=== PATIENT | male | born 1960 | race Caucasian/White ===

== ENCOUNTER 2019-10-22 12:43 | Inpatient (IN) | payer MEDICAID, OTHER ==
[~2019-10-22] VITALS: Ht 177.8 cm; Wt 104.7 kg
[2019-10-22 13:25] LABS: Basophils # (auto) 0 10 ^3/uL (0-0.2); Basophils % (auto) 0.6 % (0.0-2.0); Eosinophils # (auto) 0 10 ^3/uL (0-0.8); Eosinophils % (auto) 0.3 % (0.0-7.0); Hemoglobin 12.9 g/dL (13.5-17.5); Lymphocytes # (auto) 0.7 10 ^3/uL (0.4-5.4); Lymphocytes % (auto) 10.4 % (10.0-50.0); Mean Corpuscular Hemoglobin 30.8 pg (28.0-32.0); Mean Corpuscular Hgb Conc. 33.1 g/dL (32.0-36.0); Mean Corpuscular Volume 93.2 fL (80.0-100.0); Monocytes # (auto) 0.7 10 ^3/uL (0-1.3); Neutrophils # (auto) 4.9 10 ^3/uL (1.6-8.6); Neutrophils % (auto) 77.7 % (37.0-80.0); Platelet Count (auto) 161 10^3/uL (140-450); Red Blood Cells 4.19 10^6/uL (4.5-5.90); White Blood Cell 6.3 10^3/uL (4.4-10.8)
[2019-10-22 13:40] LABS: INR 1.21 (0.9-1.15); Partial Thromboplastin Time 34.1 sec (23.64-32.05)
[2019-10-22] MEDS ORDERED: HYDROcodone-ACET 10/325MG TAB PO ONE (13:45)
[2019-10-22 13:53] LABS: Albumin 3.1 g/dL (3.4-5.0); BUN/Creatinine Ratio 18.2; Calcium 8.1 mg/dL (8.5-10.1); Potassium 4.6 mmol/L (3.5-5.1)
[2019-10-22 13:58] LABS: Bilirubin, Total 0.7 mg/dL (0.2-1.0); Total Protein 6.5 g/dL (6.4-8.2)
[2019-10-22] MEDS ORDERED: MORPHINE SULF INJ 2 MG/ML SYRINGE 1ML IV ONE (15:15)
[2019-10-22] MEDS ORDERED: ONDANSETRON HCL 4 MG/2 ML VIAL IV ONE (15:15)
[2019-10-22] MEDS ORDERED: MORPHINE SULF INJ 2 MG/ML SYRINGE 1ML IV PRN ×2 (15:45)
[2019-10-22] MEDS ORDERED: ACETAMINOPHEN 500 MG TAB PO PRN (15:45)
[2019-10-22] MEDS ORDERED: PROMETHAZINE HCL 25 MG/ML 1ML IV PRN (15:45)
[2019-10-22] MEDS ORDERED: ALBUTEROL SULF 2.5 MG/0.5ML(0.5%) NEB SOLN NEB PRN (15:45)
[2019-10-22] MEDS ORDERED: HYDROcodone-ACET 5/325MG TAB PO PRN (15:45)
[2019-10-22] MEDS ORDERED: LORazepam 0.5 MG TAB PO PRN (15:45)
[2019-10-22] MEDS ORDERED: NITROGLYCERIN 0.4 MG SL TAB SL PRN (15:45)
[2019-10-22] MEDS: METOPROLOL TARTRATE 25 MG TAB PO SCH ×2 (16:30→21:54)
--- NOTE | 2019-10-22 17:00 | NUR ---
Telemetry admit from ER KALLIE YUAN admitted to Telemetry unit. Patient oriented to Carmen Gomez, primary RN, unit, room, bed, and unit policies regarding patient care and visiting hours. Patient now on continuous telemetry monitoring, tele box #55 and telemetry reading on arrival to unit is sinus rhythm 90's. Patient placed on bedside oxygen at 4l n/c. Patient weighed by bedscale and encouraged to call if they need something. All questions and concerns addressed, patient verbalized understanding. Will cont care
--- NOTE | 2019-10-22 17:08 | NUR ---
WOUND CARE NOTE: Wound care in to see patient per wound care request regarding "Rt gluteal" skin issue that are noted present on admission. Patient is 58 years old male with admitting diagnosis of Heart Failure, Rt Hip Pain. Patient with history of A Fib,CHF, COPD, CAD, htn, Hyperlipidemia. Patient is resting in bed in Rm. 290B. Patient is awake,alert and oriented. Patient is in no stated pain at this time, however complaints of R hip pain upon turning. Patient is able to assist in turning and repositioning. His Yvan score is 19. Patient noted with blanchable erythema to his Rt hip and bilateral knee. 1.5x1.5cm superficial scratch noted to his Rt. gluteal area,clean and dry, left open to air. Patient reported that "my skin gets dry and it itches, I scratch it". He added that his knees and Rt hip turned red and painful, two days ago and he normally ambulatory but this morning he can not walk due to Rt hip pain. Photograph of mentioned skin issue are taken for reference. Patient tolerated well, no other wound noted. Repositioned patient for comfort facing his Left side. Bed in low position, call knight on hand, all safety precautions in placed. No further wound care monitoring needed at this time. RECOMMENDATION: Nursing to continue with BID/PRN cleaning and application of Z Guard cream to sacral, buttocks as preventative per MD order, redistribute pressure points with pillows,reconsult for active wound, pressure injury, low Yvan score of 12 and below Addendum: 10/22/19 at 1757 by Martha Ordaz RN Amended: Links added.
[2019-10-22 17:15] VITALS: BP 142/99
--- NOTE | 2019-10-22 19:00 | NUR ---
Patient care endorsed to Ruben andersen patient laying in semi fowlers position in bed on 3L n/c. Patient seems drowsy with periods of been fully awake. Patient is arousable, responds to name and follows commands. Fall precautions in place since admission to unit. Patient refuses bed alarm on as he states he will call for assistance as needed. Fall band on and non slip socks are on. No acute distress or sob noted at this time. Patient instructed to notify primary rn for assistance he verbalized understanding.
[2019-10-22] MEDS: IPRATROPIUM BROM 0.5 MG/2.5ML INH SOL NEB SCH (19:06)
[2019-10-22] MEDS: ALBUTEROL SULF 2.5 MG/0.5ML(0.5%) NEB SOLN NEB SCH (19:06)
--- NOTE | 2019-10-22 20:25 | NUR ---
Initial Assessment and Abnormal Condition Upon initial assessment found the patient to be in something of a stupor. He seemed very drowsy and spoke incoherently. During report one of the Nursing Aides reported this and the previous nurse stated that was new as he did not appear that way throughout the shift. The patient was sitting on the edge of the bed and appeared he may fall soon so I insisted he lay down. The patient complied but needed maximum assistance. The patient id due to provide a urine sample which I reminded him of. I am questioning if he may have taken something from home. Will continue to monitor.
[2019-10-22 20:27] VITALS: BP 142/99
[2019-10-22] MEDS: APIXABAN 5 MG TAB PO SCH (21:53)
[2019-10-22] MEDS: FAMOTIDINE 20 MG TAB PO SCH (21:54)
[2019-10-22] MEDS: SODIUM CHLOR 0.9% PF (SALINE LOCK) 10ML VIAL/SYR IV SCH (21:54)
[2019-10-22 22:00] VITALS: BP 150/113
--- NOTE | 2019-10-22 23:08 | NUR ---
Elevated BP The patient has been sleeping most of the shift. He still has not yielded a urine sample and is now perspiring a lot. Upon re-assessment of his BP I saw the BP was still high at 160/118. A recheck yielded similar results, 157/124. The patient is stable, sleeping, no complaints. Will notify the Hospitalist for a PRN medication for his BP.
[2019-10-23] MEDS: IPRATROPIUM BROM 0.5 MG/2.5ML INH SOL NEB SCH ×4 (00:21→19:00)
[2019-10-23] MEDS: ALBUTEROL SULF 2.5 MG/0.5ML(0.5%) NEB SOLN NEB SCH ×4 (00:21→19:00)
[2019-10-23] MEDS ORDERED: LABETALOL HCL 5 MG/ML 4ML SYRINGE IV ONE ×2 (00:30→01:37)
[2019-10-23] MEDS ORDERED: LABETALOL HCL 5 MG/ML ML 20ML VIAL IV ONE (01:39)
--- NOTE | 2019-10-23 01:56 | NUR ---
Labetalol Bulleted Called the ICU about sending up Labetalol via the tube system to fulfill the new order for the patient. There was some difficulty getting the medication and the end result was 2 extra notation of the medication on the eMAR as the medication was overridden 3 times. The patient received the ordered dose, 10mg IV once. The other two instances on the eMAR were marked as already given. Will continue to monitor.
[2019-10-23 05:30] VITALS: BP 127/104
[2019-10-23] MEDS: SODIUM CHLOR 0.9% PF (SALINE LOCK) 10ML VIAL/SYR IV SCH ×3 (06:00→22:00)
[2019-10-23 06:43] LABS: Albumin 3.4 g/dL (3.4-5.0); Calcium 8.6 mg/dL (8.5-10.1); Potassium 5.5 mmol/L (3.5-5.1)
[2019-10-23 06:46] LABS: BUN/Creatinine Ratio 20.2; Bilirubin, Total 1.1 mg/dL (0.2-1.0); Total Protein 7.2 g/dL (6.4-8.2)
[2019-10-23 08:43] LABS: Urine Bacteria FEW /hpf (None Seen); Urine Blood Negative /uL (Negative); Urine Hyaline Cast FEW /lpf (0 - 2); Urine Mucus FEW (None Seen); Urine Specific Gravity 1.025 (1.001-1.035); Urine WBC 3 /hpf (0 - 3)
[2019-10-23 08:52] LABS: Alcohol, Urine < 3.0 mg/dL (0-5); Amphetamine Screen, Urine POSITIVE (NEGATIVE); Barbiturate Scree,Urine NEGATIVE (NEGATIVE); Benzodiazephine Screen, Urine NEGATIVE (NEGATIVE); Cannabinoid Screen, Urine NEGATIVE (NEGATIVE); Cocaine Screen, Urine NEGATIVE (NEGATIVE); Phencyclidine Screen, Urine NEGATIVE (NEGATIVE)
[2019-10-23 08:59] LABS: Opiate Scree,Urine POSITIVE (NEGATIVE)
[2019-10-23 09:00] VITALS: BP 122/80
[2019-10-23] MEDS ORDERED: POTASSIUM CHL 20 Meq TABLET PO SCH (10:00)
[2019-10-23] MEDS ORDERED: NITROGLYCERIN 0.2MG/HR TOPICAL PATCH TD SCH (10:00)
[2019-10-23] MEDS: FUROSEMIDE 20 MG/2 ML VIAL IV SCH (10:41)
[2019-10-23] MEDS: FAMOTIDINE 20 MG TAB PO SCH ×2 (10:42→23:28)
[2019-10-23] MEDS: APIXABAN 5 MG TAB PO SCH ×2 (10:42→23:27)
[2019-10-23] MEDS: ENALAPRIL MALEATE 10 MG TAB PO SCH (10:43)
[2019-10-23] MEDS: METOPROLOL TARTRATE 25 MG TAB PO SCH ×2 (10:43→23:28)
--- NOTE | 2019-10-23 11:08 | NUR ---
Decrease o2 patient assisted to turn to his side to change chux patient on o2 n/c at 4L. Patient noted increased sob and increased wheezing. Paged R.T to bedside for prn breathing treatment, per Sultana Small. patient already had breathing treatment and will not do one at this time. Patient assisted up right instructed to deep breath oxygen sat noted to have increased to 92-94% patient slowly catching breath and states feeling better and not sob after a while. Will cont to monitor
[2019-10-23 12:48] VITALS: BP 108/83
--- NOTE | 2019-10-23 13:08 | NUR ---
MD at bedside Jose Gunter aware of patient's status including skin integrity. New orders received for cardio consult, ortho, tele psych for amphetamine use. Will carry out orders and cont care. Patient on contact iso for "shingles", per MD continue contact precautions. P.T. paged to bedside. No acute distress or sob noted.
--- NOTE | 2019-10-23 13:41 | NUR ---
Spoke to [employer] Machine Operator Spoke to MD Manzo at nurse's station and aware of pending consult. MD aware of patient's status including pt tele monitor shows sinus rhythm. Awaiting new orders
[2019-10-23] MEDS ORDERED: LORazepam 0.5 MG TAB PO PRN (14:30)
[2019-10-23] MEDS ORDERED: DEXTROSE (50%) 50ML SYRG IV ONE (15:00)
[2019-10-23] MEDS ORDERED: InsuLIN REG 1unit/0.01ml Soln (100units/ml) IV ONE (15:00)
--- NOTE | 2019-10-23 16:15 | NUR ---
Spoke to case packer and sealer Kristal aware of pending ss consult, she states manager social services will see patient tomorrow as there's no order for dc for today.
[2019-10-23 17:00] VITALS: BP 113/57
--- NOTE | 2019-10-23 18:27 | NUR ---
electronics engineering technician at bedside to draw potassium as ordered.
[2019-10-23 18:43] LABS: BUN/Creatinine Ratio 24.3; Calcium 8.8 mg/dL (8.5-10.1); Potassium 4.3 mmol/L (3.5-5.1)
--- NOTE | 2019-10-23 19:02 | NUR ---
Received call from lab reporting critical BS of 40. Patient accucheck performed at this time and is 80. Patient fully awake, denies symptoms of hypoglycemia, denies dizziness, lightheaded. Patient provided with dinner tray at this time and he is eating. No ss of distress or acute sob noted. Patient instructed to report any symptoms of hypoglycemia he verbalized understanding. Fall precs in place. Patient states his "hip hurts but I'm okay right now I would just like to know what is wrong with it if it's not broken and I didn't fall". Patient denies need for pain meds at this time. Endorsed care to Marcy andersen and instructed to notify MD Aponte when lab results back if potassium high as per communication order.
--- NOTE | 2019-10-23 19:28 | NUR ---
Opening Shift Note Assumed care of patient, awake and alert. No S/S of distress/SOB or pain. Patient is on 4L NC and tolerating well. Instructed on POC and to call for assist PRN, will continue to monitor for changes Q1hr and PRN. Call light and bedside table are within reach. Safety precautions maintained bed rails 2x and bed is in lowest position.
--- NOTE | 2019-10-23 21:20 | NUR ---
Tele Psych Done Per psychiatrist, patient needs a painting manager and does not meet criteria for substance addiction. Awaiting psych physician report. Will continue to monitor patient Q1 and PRN. Call light and bedside table are within reach, patient instructed to call for assistance PRN.
[2019-10-23 21:36] VITALS: BP 110/65
[2019-10-24] MEDS: IPRATROPIUM BROM 0.5 MG/2.5ML INH SOL NEB SCH ×4 (00:22→18:26)
[2019-10-24] MEDS: ALBUTEROL SULF 2.5 MG/0.5ML(0.5%) NEB SOLN NEB SCH ×4 (00:22→18:26)
[2019-10-24 05:00] VITALS: BP 111/76
[2019-10-24] MEDS: SODIUM CHLOR 0.9% PF (SALINE LOCK) 10ML VIAL/SYR IV SCH ×2 (05:41→14:28)
[2019-10-24 06:26] LABS: Basophils # (auto) 0.1 10 ^3/uL (0-0.2); Basophils % (auto) 0.7 % (0.0-2.0); Eosinophils # (auto) 0 10 ^3/uL (0-0.8); Eosinophils % (auto) 0.2 % (0.0-7.0); Hematocrit 39.3 % (41.0-53.0); Hemoglobin 13.2 g/dL (13.5-17.5); Lymphocytes % (auto) 15.3 % (10.0-50.0); Mean Corpuscular Hgb Conc. 33.5 g/dL (32.0-36.0); Mean Corpuscular Volume 92.5 fL (80.0-100.0); Monocytes # (auto) 1.2 10 ^3/uL (0-1.3); Monocytes % (auto) 17.5 % (0.0-12.0); Neutrophils # (auto) 4.5 10 ^3/uL (1.6-8.6); Neutrophils % (auto) 66.3 % (37.0-80.0); Platelet Count (auto) 184 10^3/uL (140-450); Red Blood Cells 4.25 10^6/uL (4.5-5.90); Red Cell Distribution Width 15.6 % (11.8-14.3); White Blood Cell 6.8 10^3/uL (4.4-10.8)
[2019-10-24 06:40] LABS: Calcium 8.5 mg/dL (8.5-10.1); Potassium 4.4 mmol/L (3.5-5.1)
[2019-10-24 06:43] LABS: BUN/Creatinine Ratio 28.8
--- NOTE | 2019-10-24 07:25 | NUR ---
OPENING SHIFT NOTES Assumed care of patient from night clerk RN. Patient is alert and oriented x4, no signs of distress noted. Patient verbalized pain level 10/10, pain medication offered and patient refused. will continue to monitor pain levels. Patient was updated on the plan of care and verbalized understanding. Patient receiving oxygen via nasal cannula, at 3L/min saturation 96. Bed is locked, in the lowest position, side rails up x2 and call light is in reach. Patient was encouraged to call for assistance as needed.
[2019-10-24 08:41] VITALS: BP 124/90
[2019-10-24] MEDS: FUROSEMIDE 20 MG/2 ML VIAL IV SCH (09:36)
[2019-10-24] MEDS: APIXABAN 5 MG TAB PO SCH (09:36)
[2019-10-24] MEDS: ENALAPRIL MALEATE 10 MG TAB PO SCH (09:37)
[2019-10-24] MEDS: FAMOTIDINE 20 MG TAB PO SCH (09:37)
[2019-10-24] MEDS: METOPROLOL TARTRATE 25 MG TAB PO SCH (09:37)
--- NOTE | 2019-10-24 09:45 | NUR ---
Weekend system operation superintendent-10/23/19 [id number] I received a page from nurse Art letting me know that there is a social service consult for this patient for home health and resources for substance abuse. Per nurse Art patient is not discharging home today-I let her know that it would be followed up on Thursday.
--- NOTE | 2019-10-24 12:34 | NUR ---
CALL FROM Zeenat SMITH updated on patient status, orders to page Bank[facility] for cardiac clearance for discharge. Will carry out.
--- NOTE | 2019-10-24 13:03 | NUR ---
JOSEFINA PAGED per Jose Aponte orders for cardiac clearance for discharge.
--- NOTE | 2019-10-24 13:22 | NUR ---
CALL FROM PATIENT GIRLFRIEND Conchita, patient's girlfriend, called. After verification of password she was updated on the patient status and the plan of care. She verbalized understanding. All questions answered.
[2019-10-24 13:33] VITALS: BP 113/78
--- NOTE | 2019-10-24 14:14 | NUR ---
JOSEFINA RETURNED PAGE Per MD patient is cleared for DC
--- NOTE | 2019-10-24 14:28 | NUR ---
Pt reports 03/15 pain level to R hip with certain movements. Pt completed x 10 reps of each exercise for ankle pumps, quad sets,hip abd/add to then later xfr from bed to edge of bed. Pt tolerated fair to sit to stand x 5 reps mostly WB on RLE Addendum: 10/24/19 at 1430 by Lauren Gaona PT Amended: Links added.
[2019-10-24] MEDS ORDERED: BECL80AE11 IN (15:06)
[2019-10-24] MEDS ORDERED: ALBUAER3 IN (15:07)
[2019-10-24] MEDS ORDERED: APIX5TAB PO (15:08)
[2019-10-24] MEDS ORDERED: AMIO200T33 PO (15:08)
[2019-10-24] MEDS ORDERED: ALBU0.084 NEB (15:09)
[2019-10-24] MEDS ORDERED: BACL10TA PO (15:09)
[2019-10-24] MEDS ORDERED: HYDR-4833 PO (15:10)
[2019-10-24] MEDS ORDERED: FURO1TAB31 PO (15:13)
[2019-10-24] MEDS ORDERED: MET25T PO (15:13)
[2019-10-24] MEDS ORDERED: ENAL10TA2 PO (15:13)
--- NOTE | 2019-10-24 16:00 | NUR ---
WOUND PICTURES TAKEN FOR DC
[2019-10-24 16:08] VITALS: BP 149/74
--- NOTE | 2019-10-24 16:40 | NUR ---
Assessment Patient is a 58-year-old male who is alert and oriented. Prior to admission patient lived home with his girlfriend and friends. Patient functioned independently and care for his own ADLs. Per patient he will return home to his prior living arrangements post discharge and his girlfriend will transport him home. Patient informed me he has a nebulizer for home use. Patient stated he would like a walker. Informed patient I will inform nurse regarding order for walker. Advised patient there is a Social Service order for home health physical therapy, safety evaluation, resources for drug rehab and referral to [facility] transitional care management. Patient stated he does not need resources for drug rehab. Informed patient clinical information will be faxed to [facility] [facility]. Informed patient he has a right to participate in all discharge planning. Patient verbalized understanding and agreed to discharge plan. Faxed clinical information to [facility] and [facility]. [facility] [phone] patient has been accepted and service to start within 24-48hrs upon d/c day. Per Sushma with [facility] authorization for home health is [id number]. Sushma advised me Winsome with [facility] will referral patient to [facility] transitional care management. Informed KADY Valerio regarding walker and d/c plan. Addendum: 10/24/19 at 1643 by SIMRAN ZAVALETA Amended: Links added.
[2019-10-24 16:45] VITALS: BP 149/95
--- NOTE | 2019-10-24 17:04 | NUR ---
DISCHARGE Discharge instructions given as ordered. Encourage to follow up with PMD as instructed. All questions and concerns addressed. Patient verbalized understanding. Medication reconciliation form completed and copy given to patient. IV removed with catheter intact, pressure dressing applied. Telemetry unit returned to ICU. Patient taken to vehicle via wheelchair with all personal belongings, accompanied by staff. No distress noted at time of departure.
--- NOTE | 2019-10-25 12:16 | NUR ---
consultative sales associate 10/24/2019 Per consult fww. No call or page on this patient. Patient was discharged home without fww being delivered. I sent order for walker to and to Sushma manager case at [facility]. to deliver walker to patients home. Per Sushma auth for walker is [id number]. has been notified. Addendum: 10/25/19 at 1218 by Arina Arguelles Amended: Links added.
== END 2019-10-24 17:04 | disposition home health service (06) | DRG 194 ==
LOC: EDBD 12:43 → ER 12:43 → TELE 12:44 → TELE-WESTW 16:48
PROVIDERS: ADMIT Internal Medicine; ATTEND Internal Medicine
DX: I11.0 Hypertensive heart disease with heart failure (principal); L89.301 Pressure ulcer of unspecified buttock, stage 1; J96.10 Chronic respiratory failure, unspecified whether with hypoxia or hypercapnia; S32.059A Unspecified fracture of fifth lumbar vertebra, initial encounter for closed fracture; E87.5 Hyperkalemia; E87.1 Hypo-osmolality and hyponatremia; J44.1 Chronic obstructive pulmonary disease with (acute) exacerbation; M16.0 Bilateral primary osteoarthritis of hip; I50.43 Acute on chronic combined systolic (congestive) and diastolic (congestive) heart failure; I48.0 Paroxysmal atrial fibrillation; M19.019 Primary osteoarthritis, unspecified shoulder; M43.17 Spondylolisthesis, lumbosacral region; Z99.81 Dependence on supplemental oxygen; I25.10 Atherosclerotic heart disease of native coronary artery without angina pectoris; E78.5 Hyperlipidemia, unspecified; G89.29 Other chronic pain; D64.9 Anemia, unspecified; E11.9 Type 2 diabetes mellitus without complications; Z79.01 Long term (current) use of anticoagulants; Z82.49 Family history of ischemic heart disease and other diseases of the circulatory system; Z87.891 Personal history of nicotine dependence; Z91.11 Patient's noncompliance with dietary regimen; Z91.14 Patient's other noncompliance with medication regimen; Z79.84 Long term (current) use of oral hypoglycemic drugs
CPT/HCPCS: 36415; 36600; 71045; 72192; 73030; 73502; 80048; 80053; 80307; 81001; 82550; 82805; 82962; 83735; 83880; 84443; 84484; 85025; 85610; 85652; 85730; 93306; 93971; 94640; 97110; 97163; 97530; G0378; J1815; J2405; J3490

== ENCOUNTER 2020-12-05 02:23 | Inpatient (IN) | payer MEDICAID ==
[~2020-12-05] VITALS: Ht 182.9 cm; Wt 77.8 kg
[~2020-12-05 02:23] MED LIST: ALBU0.084 NEB; ALBUAER3 IN; AMIO200T33 PO; APIX5TAB PO; BACL10TA PO; BECL80AE11 IN; ENAL10TA13 PO; FURO1TAB31 PO; HYDR-4833 PO; MET25T PO
[2020-12-05 06:07] LABS: Basophils # (auto) 0.1 10 ^3/uL (0-0.2); Basophils % (auto) 0.6 % (0.0-2.0); Eosinophils # (auto) 0 10 ^3/uL (0-0.8); Hematocrit 38.8 % (41.0-53.0); Hemoglobin 13.5 g/dL (13.5-17.5); Lymphocytes % (auto) 11.6 % (10.0-50.0); Mean Corpuscular Hemoglobin 33.9 pg (28.0-32.0); Mean Corpuscular Hgb Conc. 34.9 g/dL (32.0-36.0); Mean Corpuscular Volume 97.1 fL (80.0-100.0); Monocytes # (auto) 0.8 10 ^3/uL (0-1.3); Monocytes % (auto) 9.2 % (0.0-12.0); Neutrophils # (auto) 6.8 10 ^3/uL (1.6-8.6); Neutrophils % (auto) 78.6 % (37.0-80.0); Platelet Count (auto) 160 10^3/uL (140-450); Red Blood Cells 3.99 10^6/uL (4.5-5.90); Red Cell Distribution Width 14.1 % (11.8-14.3); White Blood Cell 8.6 10^3/uL (4.4-10.8)
[2020-12-05 06:27] LABS: Calcium 8.6 mg/dL (8.5-10.1)
[2020-12-05 06:32] LABS: BUN/Creatinine Ratio 24.7
[2020-12-05] MEDS: DONNATAL 5ml ORAL Elix (BELLADONNA ALK-PHENOBARB) PO ONE ×2 (07:45→09:32)
[2020-12-05] MEDS: FAMOTIDINE 20 MG TAB PO ONE ×2 (07:45→09:32)
[2020-12-05] MEDS: SODIUM CHLORIDE 0.9% 1,000 ML IVB ONE ×2 (07:45→09:29)
[2020-12-05] MEDS: ALUM & MAG HYDROX-SIMETH LIQ(MAALOX) 30 ML PO ONE ×2 (07:45→09:32)
[2020-12-05 08:25] LABS: Albumin 3.3 g/dL (3.4-5.0); Magnesium 2.1 mg/dL (1.6-2.6)
[2020-12-05 08:28] LABS: Bilirubin, Direct 0.4 mg/dL (0-0.2); Total Protein 6.6 g/dL (6.4-8.2)
[2020-12-05] MEDS: FOLIC ACID 1 MG, MULTIPLE VITAMIN 10 ML, MAGNESIUM SULF SDV 50% 8 MEQ, THIAMINE INJ 100... INJ SCH ×10 (08:31→10:40)
[2020-12-05] MEDS ORDERED: LORazepam 2MG/ML-1ML VIAL ONE (08:37)
[2020-12-05 08:44] LABS: INR 1.14 (0.9-1.15); Partial Thromboplastin Time 29.6 sec (23.0-31.2)
[2020-12-05] MEDS ORDERED: LORazepam 2MG/ML-1ML VIAL IV ONE ×2 (08:45→13:00)
[2020-12-05] MEDS ORDERED: SODIUM CHLORIDE 0.9% 1,000 ML IV ONE (10:00)
[2020-12-05] MEDS ORDERED: NITROGLYCERIN 0.4 MG SL TAB SL PRN (15:45)
[2020-12-05] MEDS ORDERED: MORPHINE SULF INJ 2 MG/ML SYRINGE 1ML IV PRN (15:45)
[2020-12-05] MEDS: chlordiazePOXIDE HCL 25 MG CAP PO PRN (19:30)
[2020-12-05] MEDS: GABAPENTIN 300 MG CAP PO SCH (22:00)
[2020-12-05 23:04] VITALS: BP 113/73
[2020-12-06] MEDS: GABAPENTIN 300 MG CAP PO SCH ×2 (05:40→21:42)
[2020-12-06 06:09] VITALS: BP 120/80
[2020-12-06 08:26] VITALS: BP 133/94
[2020-12-06] MEDS ORDERED: GABAPENTIN 300 MG CAP PO ONE (11:15)
[2020-12-06] MEDS: FOLIC ACID 1 MG TAB PO SCH (11:57)
[2020-12-06] MEDS: chlordiazePOXIDE HCL 25 MG CAP PO PRN (11:57)
[2020-12-06] MEDS: THIAMINE HCL 100 MG TAB PO SCH (11:57)
[2020-12-06] MEDS: FOLIC ACID 1 MG, MULTIPLE VITAMIN 10 ML, MAGNESIUM SULF SDV 50% 8 MEQ, THIAMINE INJ 100... INJ SCH ×5 (12:00)
[2020-12-06 13:00] VITALS: BP 137/94
[2020-12-06 14:36] LABS: Urine Bacteria NONE SEEN /hpf (None Seen); Urine Blood Negative /uL (Negative); Urine Specific Gravity 1.017 (1.001-1.035); Urine WBC 1 /hpf (0 - 3)
[2020-12-06 14:42] LABS: Alcohol, Urine < 3.0 mg/dL (0-10); Amphetamine Screen, Urine POSITIVE (NEGATIVE); Barbiturate Scree,Urine NEGATIVE (NEGATIVE); Benzodiazephine Screen, Urine NEGATIVE (NEGATIVE); Cannabinoid Screen, Urine NEGATIVE (NEGATIVE); Cocaine Screen, Urine NEGATIVE (NEGATIVE); Opiate Scree,Urine NEGATIVE (NEGATIVE); Phencyclidine Screen, Urine NEGATIVE (NEGATIVE)
[2020-12-06 17:00] VITALS: BP 155/102
[2020-12-06 22:00] VITALS: BP 144/104
[2020-12-07 05:00] VITALS: BP 156/105
[2020-12-07] MEDS: GABAPENTIN 300 MG CAP PO SCH ×3 (05:56→23:15)
[2020-12-07 08:37] VITALS: BP 124/99
[2020-12-07] MEDS: FOLIC ACID 1 MG TAB PO SCH (10:30)
[2020-12-07] MEDS: THIAMINE HCL 100 MG TAB PO SCH (10:31)
[2020-12-07] MEDS: FOLIC ACID 1 MG, MULTIPLE VITAMIN 10 ML, MAGNESIUM SULF SDV 50% 8 MEQ, THIAMINE INJ 100... INJ SCH ×5 (12:00)
[2020-12-07 13:00] VITALS: BP 127/99
[2020-12-07 17:00] VITALS: BP 139/98
[2020-12-07] MEDS ORDERED: LEVO25TA6 PO (19:24)
[2020-12-07] MEDS ORDERED: DIGO0.12 PO (19:24)
[2020-12-07] MEDS ORDERED: ATOR10TA52 PO (19:24)
[2020-12-07 21:43] VITALS: BP 140/93
[2020-12-07] MEDS: BECLOMETHASONE DIPROPIONATE IN SCH (22:00)
[2020-12-07] MEDS: APIXABAN 5 MG TAB PO SCH (23:15)
[2020-12-07] MEDS: BACLOFEN 10 MG TAB PO SCH (23:15)
[2020-12-07] MEDS: AMIODARONE HCL 200 MG TAB PO SCH (23:15)
[2020-12-07] MEDS: METOPROLOL TARTRATE 25 MG TAB PO SCH (23:20)
[2020-12-08 05:00] VITALS: BP 131/91
[2020-12-08] MEDS: GABAPENTIN 300 MG CAP PO SCH ×4 (06:15→23:43)
[2020-12-08 07:20] LABS: Basophils # (auto) 0.1 10 ^3/uL (0-0.2); Basophils % (auto) 0.8 % (0.0-2.0); Eosinophils # (auto) 0.1 10 ^3/uL (0-0.8); Eosinophils % (auto) 0.9 % (0.0-7.0); Hematocrit 39.9 % (41.0-53.0); Hemoglobin 13.5 g/dL (13.5-17.5); Lymphocytes # (auto) 1.2 10 ^3/uL (0.4-5.4); Lymphocytes % (auto) 15.9 % (10.0-50.0); Mean Corpuscular Hemoglobin 32.9 pg (28.0-32.0); Mean Corpuscular Hgb Conc. 33.9 g/dL (32.0-36.0); Mean Corpuscular Volume 97.1 fL (80.0-100.0); Monocytes # (auto) 0.9 10 ^3/uL (0-1.3); Monocytes % (auto) 12.4 % (0.0-12.0); Neutrophils # (auto) 5.3 10 ^3/uL (1.6-8.6); Nucleated Red Blood Cells % 0.1 %; Platelet Count (auto) 167 10^3/uL (140-450); Red Blood Cells 4.11 10^6/uL (4.5-5.90); Red Cell Distribution Width 13.9 % (11.8-14.3); White Blood Cell 7.6 10^3/uL (4.4-10.8)
[2020-12-08 07:42] LABS: Albumin 2.6 g/dL (3.4-5.0); BUN/Creatinine Ratio 12.9; Bilirubin, Total 0.8 mg/dL (0.2-1.0); Calcium 8.1 mg/dL (8.5-10.1); Magnesium 2.2 mg/dL (1.6-2.6); Phosphorus 2.9 mg/dL (2.5-4.90); Total Protein 5.8 g/dL (6.4-8.2)
[2020-12-08 08:00] VITALS: BP 143/80
[2020-12-08 09:00] VITALS: BP 143/81
[2020-12-08] MEDS: FOLIC ACID 1 MG TAB PO SCH (09:40)
[2020-12-08] MEDS: THIAMINE HCL 100 MG TAB PO SCH (09:40)
[2020-12-08] MEDS: APIXABAN 5 MG TAB PO SCH ×3 (09:40→23:42)
[2020-12-08] MEDS: AMIODARONE HCL 200 MG TAB PO SCH ×3 (09:40→23:42)
[2020-12-08] MEDS: METOPROLOL TARTRATE 25 MG TAB PO SCH ×3 (09:41→23:43)
[2020-12-08] MEDS ORDERED: ENALAPRIL MALEATE 10 MG TAB PO SCH (10:00)
[2020-12-08] MEDS ORDERED: FUROSEMIDE 40 MG TAB PO SCH (10:00)
[2020-12-08] MEDS: BECLOMETHASONE DIPROPIONATE IN SCH ×2 (10:00→23:13)
[2020-12-08] MEDS ORDERED: ENOXAPARIN SOD 40 MG/0.4 ML SYRINGE SC SCH (10:00)
[2020-12-08] MEDS: FOLIC ACID 1 MG, MULTIPLE VITAMIN 10 ML, MAGNESIUM SULF SDV 50% 8 MEQ, THIAMINE INJ 100... INJ SCH ×5 (11:54)
[2020-12-08 13:00] VITALS: BP 130/88
[2020-12-08 16:49] VITALS: BP 137/80
[2020-12-08] MEDS: BACLOFEN 10 MG TAB PO SCH ×2 (23:19→23:42)
[2020-12-09] MEDS: chlordiazePOXIDE HCL 25 MG CAP PO PRN ×2 (01:42→08:40)
[2020-12-09] MEDS: GABAPENTIN 300 MG CAP PO SCH (06:07)
[2020-12-09 08:00] VITALS: BP 129/73
[2020-12-09 09:00] VITALS: BP 129/73
== END 2020-12-09 11:00 | disposition left against medical advice (07) | DRG 770 ==
LOC: EDBD 02:23 → ER 02:23 → TELE 15:39 → TELE-WESTW 22:54
PROVIDERS: ADMIT Internal Medicine; ATTEND Internal Medicine
DX: F10.231 Alcohol dependence with withdrawal delirium (principal); R45.851 Suicidal ideations; I07.1 Rheumatic tricuspid insufficiency; I50.32 Chronic diastolic (congestive) heart failure; I11.0 Hypertensive heart disease with heart failure; I27.20 Pulmonary hypertension, unspecified; G25.2 Other specified forms of tremor; I48.0 Paroxysmal atrial fibrillation; R41.82 Altered mental status, unspecified; Z20.822 Contact with and (suspected) exposure to COVID-19; R53.81 Other malaise; F29 Unspecified psychosis not due to a substance or known physiological condition; E78.5 Hyperlipidemia, unspecified; E78.00 Pure hypercholesterolemia, unspecified; E03.9 Hypothyroidism, unspecified; F02.80 Dementia in other diseases classified elsewhere, unspecified severity, without behavioral disturbance, psychotic disturbance, mood disturbance, and anxiety; F41.9 Anxiety disorder, unspecified; I25.10 Atherosclerotic heart disease of native coronary artery without angina pectoris; J44.9 Chronic obstructive pulmonary disease, unspecified; Z79.899 Other long term (current) drug therapy; Z82.0 Family history of epilepsy and other diseases of the nervous system; Z87.891 Personal history of nicotine dependence; Z79.891 Long term (current) use of opiate analgesic; Z79.01 Long term (current) use of anticoagulants; F15.10 Other stimulant abuse, uncomplicated
CPT/HCPCS: 36415; 70450; 71045; 80048; 80053; 80076; 80307; 81001; 83690; 83735; 84100; 84443; 84484; 85025; 85610; 85730; 87426; 93005; 93306; 95819; 96361; 96374; G0378

== ENCOUNTER 2020-12-09 12:54 | Emergency (ER) | payer MEDICAID ==
[~2020-12-09 12:54] MED LIST changes: +ATOR10TA52 PO; +DIGO0.12 PO; +LEVO25TA6 PO
== END 2020-12-09 13:52 | disposition left against medical advice (07) ==
LOC: ER 12:54 → EDBD 12:54 → ER 13:52
DX: R52 Pain, unspecified (principal); Z53.21 Procedure and treatment not carried out due to patient leaving prior to being seen by health care provider

== ENCOUNTER 2021-12-31 08:40 | Inpatient (IN) | payer MEDICARE, MEDICAID ==
[~2021-12-31] VITALS: Ht 175.3 cm; Wt 62.5 kg
[2021-12-31] MEDS ORDERED: SODIUM CHLORIDE 0.9% 1,000 ML IV ONE (10:00)
[2021-12-31 10:21] LABS: Basophils # (auto) 0.1 10 ^3/uL (0-0.2); Basophils % (auto) 1.1 % (0.0-2.0); Eosinophils # (auto) 0.1 10 ^3/uL (0-0.8); Eosinophils % (auto) 2.4 % (0.0-7.0); Hematocrit 40.9 % (41.0-53.0); Hemoglobin 13.7 g/dL (13.5-17.5); Lymphocytes # (auto) 1.4 10 ^3/uL (0.4-5.4); Lymphocytes % (auto) 29.1 % (10.0-50.0); Mean Corpuscular Hemoglobin 31.2 pg (28.0-32.0); Mean Corpuscular Hgb Conc. 33.6 g/dL (32.0-36.0); Mean Corpuscular Volume 92.7 fL (80.0-100.0); Monocytes # (auto) 0.4 10 ^3/uL (0-1.3); Monocytes % (auto) 9.1 % (0.0-12.0); Neutrophils # (auto) 2.8 10 ^3/uL (1.6-8.6); Neutrophils % (auto) 58.3 % (37.0-80.0); Red Blood Cells 4.41 10^6/uL (4.5-5.90); Red Cell Distribution Width 12.6 % (11.8-14.3); White Blood Cell 4.8 10^3/uL (4.4-10.8)
[2021-12-31 10:31] LABS: Albumin 3.2 g/dL (3.4-5.0); Calcium 8.7 mg/dL (8.5-10.1); Potassium 3.4 mmol/L (3.5-5.1)
[2021-12-31 10:35] LABS: BUN/Creatinine Ratio 29.6; Bilirubin, Total 0.5 mg/dL (0.2-1.0); Total Protein 6.8 g/dL (6.4-8.2)
[2021-12-31 10:49] LABS: INR 1.06 (0.9-1.15); Partial Thromboplastin Time 30.2 sec (23.6-33.0)
[2021-12-31] MEDS ORDERED: MULTIPLE VITAMINS W/ MINERALS TAB PO ONE (13:30)
[2021-12-31] MEDS ORDERED: PANTOPRAZOLE 40 MG/10 ML VIAL INJ IV ONE (13:30)
[2021-12-31] MEDS: SOD CHL 0.9%/ KCL 20MEQ 1,000 ML IV SCH (13:30)
[2021-12-31] MEDS ORDERED: LORazepam 2MG/ML-1ML VIAL IV ONE (13:30)
[2021-12-31] MEDS ORDERED: NITROGLYCERIN 0.4 MG SL TAB SL PRN (13:30)
[2021-12-31] MEDS ORDERED: MORPHINE SULFATE INJ 2 MG/ml SYRG IV PRN (13:30)
[2021-12-31] MEDS ORDERED: THIAMINE 100mg/ml INJ (200mg/2ml VIAL) IV ONE (13:30)
[2021-12-31] MEDS ORDERED: HALOPERIDOL LACTATE 5 MG/ML INJ VIAL IM PRN (21:00)
[2021-12-31 22:27] LABS: Folate (Folic Acid) 6.32 ng/mL (5.38-24)
[2022-01-01] MEDS: SOD CHL 0.9%/ KCL 20MEQ 1,000 ML IV SCH ×2 (05:14→16:10)
[2022-01-01 08:15] LABS: Calcium 8.3 mg/dL (8.5-10.1); Potassium 4.4 mmol/L (3.5-5.1)
[2022-01-01 08:21] LABS: BUN/Creatinine Ratio 31.5
[2022-01-01 09:00] VITALS: BP 102/84
[2022-01-01] MEDS: PANTOPRAZOLE 40 MG/10 ML VIAL INJ IV SCH (09:28)
[2022-01-01] MEDS: THIAMINE 100mg/ml INJ (200mg/2ml VIAL) IV SCH (09:28)
[2022-01-01] MEDS: MULTIPLE VITAMINS W/ MINERALS TAB PO SCH (09:28)
[2022-01-01 13:00] VITALS: BP 102/63
[2022-01-01] MEDS ORDERED: MIDAZOLAM HCL 5 MG/ML-1ML VIAL ONE (13:26)
[2022-01-01] MEDS ORDERED: SODIUM CHLORIDE LOCK 10 ML ONE (13:26)
[2022-01-01] MEDS ORDERED: LIDOCAINE 2% JELLY 11ml (GLYDO) ONE (13:27)
[2022-01-01] MEDS ORDERED: diphenhdrAMINE HCL 50 MG/1 ML VL ONE (13:27)
[2022-01-01] MEDS ORDERED: fentaNYL CITRATE 100 MCG/2 ML VL ONE (13:27)
[2022-01-01 17:00] VITALS: BP 89/60
[2022-01-01 22:00] VITALS: BP 87/55
[2022-01-02 05:00] VITALS: BP 96/66
[2022-01-02 06:35] LABS: Urine Bacteria NONE SEEN /hpf (None Seen); Urine Blood Negative /uL (Negative); Urine Specific Gravity 1.025 (1.001-1.035); Urine WBC 1 /hpf (0 - 3)
[2022-01-02 08:00] VITALS: BP 95/68
[2022-01-02] MEDS: SOD CHL 0.9%/ KCL 20MEQ 1,000 ML IV SCH ×2 (08:00→20:21)
[2022-01-02] MEDS: THIAMINE 100mg/ml INJ (200mg/2ml VIAL) IV SCH (09:26)
[2022-01-02] MEDS: PANTOPRAZOLE 40 MG/10 ML VIAL INJ IV SCH (09:26)
[2022-01-02] MEDS: MULTIPLE VITAMINS W/ MINERALS TAB PO SCH (09:26)
[2022-01-02 12:00] VITALS: BP 92/59
[2022-01-02 16:00] VITALS: BP 90/58
[2022-01-02 21:41] VITALS: BP 95/61
[2022-01-02] MEDS: DONEPEZIL HYDROCHLORIDE 5 MG TAB PO SCH (22:18)
[2022-01-03 05:12] VITALS: BP 99/62
[2022-01-03 05:27] LABS: Basophils # (auto) 0 10 ^3/uL (0-0.2); Basophils % (auto) 0.9 % (0.0-2.0); Eosinophils # (auto) 0.1 10 ^3/uL (0-0.8); Eosinophils % (auto) 1.6 % (0.0-7.0); Hemoglobin 15.3 g/dL (13.5-17.5); Lymphocytes # (auto) 1.5 10 ^3/uL (0.4-5.4); Lymphocytes % (auto) 29.3 % (10.0-50.0); Mean Corpuscular Hemoglobin 31.3 pg (28.0-32.0); Mean Corpuscular Volume 92.2 fL (80.0-100.0); Monocytes # (auto) 0.4 10 ^3/uL (0-1.3); Monocytes % (auto) 8.6 % (0.0-12.0); Neutrophils % (auto) 59.6 % (37.0-80.0); Nucleated Red Blood Cells % 0.2 %; Red Blood Cells 4.88 10^6/uL (4.5-5.90); Red Cell Distribution Width 12.9 % (11.8-14.3)
[2022-01-03 05:44] LABS: BUN/Creatinine Ratio 12.9; Calcium 9.1 mg/dL (8.5-10.1); Potassium 4.3 mmol/L (3.5-5.1)
[2022-01-03 09:00] VITALS: BP 110/71
[2022-01-03] MEDS: MULTIPLE VITAMINS W/ MINERALS TAB PO SCH (10:00)
[2022-01-03] MEDS: SOD CHL 0.9%/ KCL 20MEQ 1,000 ML IV SCH ×2 (10:22→21:30)
[2022-01-03] MEDS: THIAMINE 100mg/ml INJ (200mg/2ml VIAL) IV SCH (10:25)
[2022-01-03] MEDS: PANTOPRAZOLE 40 MG/10 ML VIAL INJ IV SCH (10:25)
[2022-01-03 13:00] VITALS: BP 103/64
[2022-01-03] MEDS ORDERED: LIDOCAINE VISCOUS 2% 15ML UD ONE (14:53)
[2022-01-03] MEDS ORDERED: diphenhdrAMINE HCL 50 MG/1 ML VL ONE (14:53)
[2022-01-03] MEDS ORDERED: SODIUM CHLORIDE LOCK 10 ML ONE (14:53)
[2022-01-03] MEDS: MIDAZOLAM HCL 5 MG/ML-1ML VIAL ONE ×3 (16:45→16:56)
[2022-01-03] MEDS: fentaNYL CITRATE 100 MCG/2 ML VL ONE ×2 (16:45→16:48)
[2022-01-03 17:00] VITALS: BP 102/69
[2022-01-03] MEDS: DONEPEZIL HYDROCHLORIDE 5 MG TAB PO SCH (21:51)
[2022-01-03 22:00] VITALS: BP_SYST 109; BP_DIAS 70; BP_DIAS 72
[2022-01-04] MEDS: SOD CHL 0.9%/ KCL 20MEQ 1,000 ML IV SCH (04:24)
[2022-01-04 04:53] VITALS: BP 113/71
[2022-01-04] MEDS ORDERED: PANT40T PO (09:20)
[2022-01-04] MEDS: MULTIPLE VITAMINS W/ MINERALS TAB PO SCH (09:53)
[2022-01-04] MEDS: PANTOPRAZOLE 40 MG/10 ML VIAL INJ IV SCH (09:53)
[2022-01-04] MEDS: THIAMINE 100mg/ml INJ (200mg/2ml VIAL) IV SCH (09:53)
[2022-01-04 12:00] VITALS: BP 105/70
[2022-01-04 13:19] VITALS: BP 105/70
== END 2022-01-04 13:25 | disposition home or self-care (01) | DRG 380 ==
LOC: ER 08:40 → TELE 13:32 → TELE-EAST 17:49
PROVIDERS: ADMIT Internal Medicine; ATTEND Family Medicine
PROC: 0DB68ZX Excision of Stomach, Via Natural or Artificial Opening Endoscopic, Diagnostic (ICD-10-PCS; 2022-01-03)
PROC: 0DB48ZX Excision of Esophagogastric Junction, Via Natural or Artificial Opening Endoscopic, Diagnostic (ICD-10-PCS; 2022-01-03)
PROC: 0DB98ZX Excision of Duodenum, Via Natural or Artificial Opening Endoscopic, Diagnostic (ICD-10-PCS; principal; 2022-01-03 16:39)
DX: K22.10 Ulcer of esophagus without bleeding (principal); G93.41 Metabolic encephalopathy; D68.59 Other primary thrombophilia; G91.9 Hydrocephalus, unspecified; I50.42 Chronic combined systolic (congestive) and diastolic (congestive) heart failure; Z68.1 Body mass index [BMI] 19.9 or less, adult; R13.10 Dysphagia, unspecified; K29.70 Gastritis, unspecified, without bleeding; I95.9 Hypotension, unspecified; G30.9 Alzheimer's disease, unspecified; I11.0 Hypertensive heart disease with heart failure; I48.91 Unspecified atrial fibrillation; R62.7 Adult failure to thrive; Z20.822 Contact with and (suspected) exposure to COVID-19; K44.9 Diaphragmatic hernia without obstruction or gangrene; J61 Pneumoconiosis due to asbestos and other mineral fibers; I25.10 Atherosclerotic heart disease of native coronary artery without angina pectoris; J44.9 Chronic obstructive pulmonary disease, unspecified; R63.4 Abnormal weight loss; E78.5 Hyperlipidemia, unspecified; Z87.19 Personal history of other diseases of the digestive system
CPT/HCPCS: 36415; 43239; 70450; 70551; 71045; 71250; 74176; 80048; 80053; 81001; 82306; 82607; 82746; 82962; 83880; 84443; 84484; 85025; 85610; 85730; 86850; 86900; 86901; 87086; 93005; 93306; 95819; 96361; 96374; 97110; 97116; 97163; 97530; C9113; G0378; J2250